=== PATIENT | female | born 1945 | race Caucasian/White ===

== ENCOUNTER → 2016-11-27 | Outpatient (CLI) | payer OTHER ==
[2016-11-27 17:06] LABS: FREE T4 (FREE THYROXINE) 1.32 ng/dL (0.93-1.71)
== END ==
LOC: MOB LAB 13:46
DX: E03.9 Hypothyroidism, unspecified (principal)
CPT/HCPCS: 36415; 84439; 84443; 99213

== ENCOUNTER → 2017-02-25 | Outpatient (CLI) | payer OTHER ==
[2017-02-25 10:32] LABS: BUN/CREATININE RATIO 21.42 (6-20); CALCIUM 9.1 mg/dL (8.7-10.7); PHOSPHORUS 3.6 mg/dl (2.4-4.3)
== END ==
LOC: LAB 10:03
DX: M81.0 Age-related osteoporosis without current pathological fracture (principal)
CPT/HCPCS: 36415; 80048; 84100

== ENCOUNTER → 2017-02-28 | Outpatient (CLI) | payer OTHER | LOC: MMPC 11:11 | DX: M81.0 Age-related osteoporosis without current pathological fracture (principal) | CPT/HCPCS: G0463; J0897 ==

== ENCOUNTER → 2017-05-23 | Outpatient (CLI) | payer OTHER | LOC: MMPC 11:11 | DX: I10 Essential (primary) hypertension (principal); E66.9 Obesity, unspecified; J44.9 Chronic obstructive pulmonary disease, unspecified; E03.9 Hypothyroidism, unspecified; E78.5 Hyperlipidemia, unspecified; H35.30 Unspecified macular degeneration; E55.9 Vitamin D deficiency, unspecified | CPT/HCPCS: 99213; G0463 ==